=== PATIENT | female | born 1955 | race Caucasian/White ===

== ENCOUNTER 2024-06-12 15:37 | Emergency (ER) | payer MEDICARE, SELFPAY ==
[2024-06-12 15:47] VITALS: BP 125/56; PULSE 61; RESP 16; TEMP 36.1; O2SAT 99; BMI 20.5
--- NOTE | 2024-06-12 15:53 | DI.RAD.S_ITS ---
PROCEDURE: XR HIP W PEL IF DONE RT 2V INDICATIONS: pain TECHNIQUE: AP pelvis with lateral view(s) of the right hip(s). COMPARISON: None. FINDINGS: Bones: No fractures or dislocations. Severe left and moderate to severe right hip joint degeneration. There is joint space narrowing osteophytosis and subchondral sclerosis and cystic change. Pelvic ring appears intact. No suspicious bony lesions. Soft tissues: The visualized bowel gas pattern is normal. No suspicious soft tissue calcifications. IMPRESSION: No acute osseous abnormalities. Severe left and moderate to severe right hip joint degeneration. Dictated by: Wayne Duff M.D. on 06/12/2024 at 16:39 Approved by: Wayne Duff M.D. on 06/12/2024 at 16:40
--- NOTE | 2024-06-12 18:47 | ED.LOWEXIN ---
HPI - Extremity Injury (Lower) <Jyotsna Link PA-C - Last Filed: 06/13/24 10:37> General Chief Complaint: Extremity Injury, Lower Stated Complaint: severe rt hip pain Time Seen by Provider: 06/12/24 16:35 History of Present Illness HPI Narrative: Patient is a very pleasant 69-year-old female that presents to the emergency room department with her . Patient complains of severe right hip pain. No recent injury, trauma or fall. Patient states she has been having ongoing kind of chronic episodes of right hip pain. Patient states she played pickleball today. Seems to have exacerbated the pain. Has not taken anything for pain prior to being seen here in the emergency department. No radiculopathy symptoms. No red flag symptoms. No other further complaints. Related Data Previous Rx's Medication Instructions Recorded hydrocodone 5 mg-acetaminophen 325 1 tab PO Q8H PRN pain #10 tabs 06/12/24 mg tablet ketorolac 10 mg tablet 10 mg PO Q8H #15 tabs 06/12/24 prednisone 10 mg tablet 10 mg PO DIRECTED #12 tabs 06/12/24 Allergies Allergy/AdvReac Type Severity Reaction Status Date / Time No Known Drug Allergies Allergy Verified 06/12/24 18:56 Review of Systems <Jyotsna Link PA-C - Last Filed: 06/13/24 10:37> Review of Systems Narrative: Negative except as above Musculoskeletal Comments: Right lateral hip pain, no recent injury, trauma or fall. Patient History <Jyotsna Link PA-C - Last Filed: 06/13/24 10:37> Surgical History History of cataract removal with insertion of prosthetic lens History of breast augmentation Social History Smoking Status: Never smoker Smoking Status: Never smoker alcohol intake frequency: holidays/special occasions only Substance Use Type: does not use Exam <Jyotsna Link PA-C - Last Filed: 06/13/24 10:37> Initial Vital Signs Initial Vital Signs: Vital Signs Temperature 97 F L 06/12/24 15:47 Pulse Rate 61 06/12/24 15:47 Respiratory Rate 16 06/12/24 15:47 Blood Pressure 125/56 L 06/12/24 15:47 Pulse Oximetry 99 06/12/24 15:47 Oxygen Delivery Method Room Air 06/12/24 15:47 Reviewed Const General: cooperative, healthy appearing and in distress (Pain with ambulation, holding the right hip) Nutritional Appearance: average body habitus and well nourished Eyes General: Yes appearance normal, both eyes and all related structures Pupils: PERRL EOM: EOM intact bilaterally Skin Other: Warm pink and dry Neuro General: patient alert, patient awake, patient oriented x3, oriented and other (Antalgic gait favoring the right hip) Cranial Nerves: CN's II-XI intact bilaterally Cognition: normal cognition Speech: speech normal Extrem Other: Range of motion, strength, pulses cap refill are preserved in the upper and lower extremities. Patient has right lateral buttock pain and right hip pain. Range of motion is decreased due to discomfort and pain. However strength is intact. Cap refill is preserved, pulses are present. There is no muscle wasting. She does not have any back pain. No radiculopathy symptoms. Range of motion makes the symptoms worse, sitting makes the symptoms worse. Any type of flexion activity worsens the discomfort and pain. Psych Appearance: grossly normal Mental Status: mental status grossly normal Speech and Movement: speech and movement normal Mood: congruent mood Affect: normal affect Attitude: cooperative Thought Process: normal Thought Content: normal Judgment: judgment good <Casandra Ramirez DO - Last Filed: 06/14/24 07:36> Initial Vital Signs Initial Vital Signs: Vital Signs Temperature 97 F L 06/12/24 15:47 Pulse Rate 61 06/12/24 15:47 Respiratory Rate 16 06/12/24 15:47 Blood Pressure 125/56 L 06/12/24 15:47 Pulse Oximetry 99 06/12/24 15:47 Oxygen Delivery Method Room Air 06/12/24 15:47 Scores <Jyotsna Link PA-C - Last Filed: 06/13/24 10:37> GCS Citation: 15 Course <Jyotsna Link PA-C - Last Filed: 06/13/24 10:37> Orders Ordered: Discontinued Medications Ketorolac Tromethamine (Ketorolac 30 Mg/Ml Vial) 30 mg IM NOW ONE Stop: 09/26/24 18:48 Last Admin: 06/12/24 18:59 Dose: 30 mg Documented By: BS Vital Signs Vital signs: Vital Signs - 8 hr 06/12/24 15:47 Temperature 97 F L Pulse Rate 61 Respiratory Rate 16 Blood Pressure 125/56 L Pulse Oximetry 99 Oxygen Delivery Method Room Air Reviewed <Casandra Ramirez DO - Last Filed: 06/14/24 07:36> Orders Ordered: Discontinued Medications Ketorolac Tromethamine (Ketorolac 30 Mg/Ml Vial) 30 mg IM NOW ONE Stop: 06/12/24 18:48 Last Admin: 06/12/24 18:59 Dose: 30 mg Documented By: BS Vital Signs Vital signs: Vital Signs - 8 hr 06/12/24 15:47 Temperature 97 F L Pulse Rate 61 Respiratory Rate 16 Blood Pressure 125/56 L Pulse Oximetry 99 Oxygen Delivery Method Room Air MDM - Extremity Injury (Lower) <Jyotsna Link PA-C - Last Filed: 06/13/24 10:37> MDM Narrative Medical decision making narrative: 69-year-old female ongoing chronic episodic right hip pain, played pickleball today worsening hip pain. No treatment or pain medication prior to being seen here in the emergency department. To work today. Use some ice on the hip. Patient does not live here. Visiting, currently at this time and having discomfort and pain with ambulation, and sitting. Toradol 30 mg shot We made a copy of her x-rays and placed them on a disc for her Differential diagnosis; right hip bursitis, severe moderate right hip osteoarthritis. Discharge Plan Departure Patient Disposition: Home Clinical Impression: Osteoarthritis Qualifiers: Osteoarthritis location: hip Osteoarthritis type: primary Laterality: right Qualified Code(s): M16.11 - Unilateral primary osteoarthritis, right hip Activity Restrictions/Additional Instructions: I would take it easy on the pickleball, swimming okay, nonweightbearing activities, try to keep active, walk, reclined bike is okay. Take steroids in the morning. The ketorolac for minimal pain, the hydrocodone for severe pain. Take the prednisone as prescribed. Please follow-up with your primary care doctor. Return to the emergency department as needed Take the prednisone in the morning Disc has been given you of your x-rays You will need follow up with Orthopedics, possibly a CT scan of her hip, possibly an MRI Prescriptions: New ketorolac 10 mg tablet 10 mg PO Q8H Qty: 15 0RF Rx Instructions: maximum total duration of 5 days from all oral, intranasal, or parenteral formulations prednisone 10 mg tablet 10 mg PO DIRECTED Qty: 12 0RF Rx Instructions: see taper instructions 30 mg for 2 days, 20 mg for 2 days, 10 mg for 2 days. hydrocodone-acetaminophen 5-325 mg tablet 1 tab PO Q8H PRN (Reason: pain) Qty: 10 0RF Referrals: Marian Nicholson ARNP [Primary Care Provider] - Stand Alone Forms: Patient Portal/API ED Sign-out <Casandra Ramirez DO - Last Filed: 06/14/24 07:36> Cosign ED Attending Cosignature Attestation: I was available for consultation.
[2024-06-12] MEDS: KETOROLAC 30 MG/ML VIAL IM (18:59)
[2024-06-12 19:20] VITALS: BP 111/61; PULSE 60; RESP 16; O2SAT 100
== END 2024-06-12 19:25 | disposition home or self-care (01) ==
PROVIDERS: Emergency Provider Physician Assistant; PCP Nurse Practitioner Family
DX: M16.11 Unilateral primary osteoarthritis, right hip (principal)
CPT/HCPCS: 73502; 96372; 99283; J1885

== ENCOUNTER → 2024-06-24 08:56 | Outpatient (CLI) | payer MEDICARE, SELFPAY ==
--- NOTE | 2024-06-24 09:02 | EKG_ITS ---
[facility] [address] [address] Test Date: 2024-06-24 Pat Name: Mady Reese Department: [facility] Room: Gender: Female Grape Pruner: LORI : 1955 Requested By: Order Number: [id number] Reading MD: Anton Quintero MD Measurements Intervals Combs Rate: 60 P: 9 FL: 122 QRS: 63 QRSD: 74 T: 55 QT: 400 QTc: 400 Interpretive Statements Normal sinus rhythm Electronically Signed On 06-24-2024 12:04:07 PDT by Anton Quintero MD
[2024-06-24 09:59] LABS: Add Manual Diff / Slide Review NO; Basophils Absolute Auto 0 /uL (0-100); Basophils Percent Auto 0.7 % (0-2); Eosinophils Absolute Auto 300 /uL (0-450); Eosinophils Percent Auto 5.6 % (2-4); Hematocrit 37.9 % (36-46); Hemoglobin 12.9 g/dL (12.0-16.0); Lymphocytes Absolute Auto 2000 /uL (1100-4500); Lymphocytes Percent Auto 36.8 % (25-40); Mean Corpuscular Hemoglobin 31.1 PG (26-34); Mean Corpuscular Volume 91.7 fL (80-100); Monocytes Absolute Auto 400 /uL (0-900); Monocytes Percent Auto 7.7 % (3-14); Neutrophils Absolute Auto 2700 /uL (1500-7000); Neutrophils Percent Auto 49.2 % (50-75); Platelet Count 223 X10^3/uL (150-400); Red Blood Cell Count 4.13 X10^6/uL (4.0-5.2); Red Cell Distribution Width 13.2 % (11.6-14.8); White Blood Cell Count 5.5 X10^3/uL (4.5-11.0)
[2024-06-24 10:48] LABS: BUN Creatinine Ratio 31.3 (6-22); Blood Urea Nitrogen 25 mg/dL (7-17); Calcium 9.6 mg/dL (8.4-10.2); Carbon Dioxide 26 mmol/L (22-32); Chloride 103 mmol/L (98-107); Estimated Glomerular Filt Rate > 60 mL/min (>60); Glucose 103 mg/dL (80-110); HEMOLYSIS < 15 (0-50); Hemoglobin A1C% w Est Avg Glu 5.4 % (4.0-6.0); Potassium 4.1 mmol/L (3.4-5.1); Sodium 137 mmol/L (137-145)
[2024-06-24 11:20] LABS: Appearance Urine UA CLEAR; Bilirubin Urine UA NEGATIVE (NEGATIVE); Color Urine UA YELLOW; Glucose Urine UA NEGATIVE (Negative); Ketones Urine UA TRACE (NEGATIVE); Leukocyte Esterase Urine UA NEGATIVE (NEGATIVE); Nitrite Urine UA NEGATIVE (Negative); Occult Blood Urine UA NEGATIVE (Negative); Protein Urine UA NEGATIVE (Negative); Urobilinogen Urine UA 0.2 E.U./dL (0.2)
[2024-06-24 11:23] LABS: pH Urine UA 5.5 (4.5-8.0)
[2024-06-24 11:51] LABS: Bacteria Urine None Seen; Culture Indicated Urine Cult Not Indicated; RBC Urine None Seen (0-5/HPF); Squamous Epithelial Cell Urine None Seen (0-5/HPF); Urine Volume 10mL (spun); WBC Urine None Seen (0-5/HPF)
== END ==
LOC: LAB 09:00
PROVIDERS: PCP Nurse Practitioner Family; Referring Provider Orthopaedic Surgery; Visit Provider Orthopaedic Surgery
DX: Z01.818 Encounter for other preprocedural examination (principal); R73.9 Hyperglycemia, unspecified; Z01.812 Encounter for preprocedural laboratory examination; N39.0 Urinary tract infection, site not specified
CPT/HCPCS: 36415; 80048; 81001; 83036; 85025; 93005

== ENCOUNTER → 2024-12-11 14:06 | Outpatient (CLI) | payer MEDICARE, OTHER, SELFPAY ==
[2024-12-11 14:35] LABS: Add Manual Diff / Slide Review NO; Basophils Absolute Auto 0 /uL (0-100); Basophils Percent Auto 0.5 % (0-2); Eosinophils Absolute Auto 300 /uL (0-450); Eosinophils Percent Auto 6.6 % (2-4); Hematocrit 35.9 % (36-46); Lymphocytes Absolute Auto 1200 /uL (1100-4500); Lymphocytes Percent Auto 27.4 % (25-40); Mean Corpuscular HGB Conc 33.4 % (30-36); Mean Corpuscular Hemoglobin 30.1 PG (26-34); Mean Corpuscular Volume 90.3 fL (80-100); Monocytes Absolute Auto 300 /uL (0-900); Monocytes Percent Auto 6.1 % (3-14); Neutrophils Absolute Auto 2700 /uL (1500-7000); Neutrophils Percent Auto 59.4 % (50-75); Platelet Count 226 X10^3/uL (150-400); Red Blood Cell Count 3.98 X10^6/uL (4.0-5.2); Red Cell Distribution Width 13.4 % (11.6-14.8); White Blood Cell Count 4.5 X10^3/uL (4.5-11.0)
[2024-12-11 15:10] LABS: Appearance Urine UA CLEAR; Bilirubin Urine UA NEGATIVE (NEGATIVE); Color Urine UA YELLOW; Glucose Urine UA NEGATIVE (Negative); Ketones Urine UA NEGATIVE (NEGATIVE); Leukocyte Esterase Urine UA NEGATIVE (NEGATIVE); Nitrite Urine UA NEGATIVE (Negative); Occult Blood Urine UA NEGATIVE (Negative); Protein Urine UA NEGATIVE (Negative); Specific Gravity Urine UA 1.015 (1.000-1.035); Urobilinogen Urine UA 0.2 E.U./dL (0.2)
[2024-12-11 15:12] LABS: Hemoglobin A1C% w Est Avg Glu 5.1 % (4.0-6.0)
[2024-12-11 15:13] LABS: BUN Creatinine Ratio 18.9 (6-22); Blood Urea Nitrogen 23 mg/dL (7-17); Calcium 9.2 mg/dL (8.4-10.2); Carbon Dioxide 27 mmol/L (22-32); Chloride 104 mmol/L (98-107); Estimated Glomerular Filt Rate 48 mL/min (>60); Glucose 97 mg/dL (80-110); HEMOLYSIS < 15 (0-50); Potassium 4.2 mmol/L (3.4-5.1); Sodium 140 mmol/L (137-145)
[2024-12-11 15:20] LABS: Bacteria Urine None Seen; Culture Indicated Urine Cult Not Indicated; RBC Urine None Seen (0-5/HPF); Squamous Epithelial Cell Urine 0-1 /HPF (0-5/HPF); Urine Volume Low Vol <10mL (spun); WBC Urine None Seen (0-5/HPF)
== END ==
PROVIDERS: PCP Nurse Practitioner Family; Referring Provider Nurse Practitioner Family; Visit Provider Orthopaedic Surgery
DX: Z01.812 Encounter for preprocedural laboratory examination (principal); R73.9 Hyperglycemia, unspecified; N39.0 Urinary tract infection, site not specified
CPT/HCPCS: 36415; 80048; 81001; 83036; 85025